=== PATIENT | female | born 1950 | race Caucasian/White ===

== ENCOUNTER 2018-10-10 01:36 | Inpatient (IN) | payer MEDICARE, OTHER ==
[2018-10-10 04:29] LABS: ABNORMAL IP MESSAGE 1; HEMATOCRIT 35.8 % (37.0-47.0); HEMOGLOBIN 10.4 g/dl (12.0-16.0); MEAN CORPUSCULAR HEMOGLOBIN 26.9 pg (29.0-33.0); MEAN CORPUSCULAR HGB CONC 29.1 g/dl (32.0-37.0); MEAN CORPUSCULAR VOLUME 92.5 fl (82.0-101.0); MEAN PLATELET VOLUME 9.7 fl (7.4-10.4); PLATELET COUNT 262 10^3/UL (140-415); RED BLOOD COUNT 3.87 10^6/ul (4.20-5.40); RED CELL DISTRIBUTION WIDTH 16.5 % (11.5-14.5)
[2018-10-10 04:29] LABS: WHITE BLOOD COUNT 6.8 10^3/ul (4.8-10.8)
[2018-10-10 04:32] LABS: ADD MAN DIFF? YES; POSITIVE DIFF @See below
[2018-10-10 04:49] LABS: INR 0.96; PROTIME 12.9 Sec (11.9-14.9)
[2018-10-10 04:51] LABS: ANION GAP 8 (5-13); BLOOD UREA NITROGEN 42 mg/dl (7-20); CARBON DIOXIDE 30 mmol/L (21-31); CHLORIDE 100 mmol/L (97-110); CREATININE 1.33 mg/dl (0.44-1.00); Estimated GFR 40 mL/min (>60); GLUCOSE 88 mg/dl (70-220); SODIUM 138 mmol/L (135-144)
[2018-10-10 05:01] LABS: B-TYPE NATRIURETIC PEPTIDE 3840 PG/ML (0-125); TROPONIN-I 0.053 ng/ml (0.000-0.120)
[2018-10-10 05:17] LABS: ANISOCYTOSIS 1+ (0-0); BAND NEUTROPHILS #M 3.3 10^3/ul (0.0-0.6); BAND NEUTROPHILS % (M) 49 % (0-4); BASOPHILS % (M) 1 % (0-2); GIANT THROMBO% (M) 11 % (0-0); LYMPHOCYTES #M 0.3 10^3/ul (0.8-2.9); LYMPHOCYTES % (M) 5 % (15-51); METAMYELOCYTES %M 15 % (0-0); MYELOCYTES #M 0.2 10^3/ul (0.0-0.0); MYELOCYTES % (M) 4 % (0-0); PLATELET ESTIMATE NORMAL; PLATELET MORPHOLOGY COMMENT @See below; POIKILOCYTOSIS 1+ (0-0); POLYCHROMASIA 1+ (0-0); SEGMENTED NEUTROPHILS (M) % 26 % (39-77); SMUDGE%M 12 % (0-0)
[2018-10-10] MEDS ORDERED: ONDANSETRON 4 MG INJ IV ×2 (06:30→14:00)
[2018-10-10] MEDS ORDERED: ACETAMINOPHEN 325 MG TAB PO ×2 (06:30→14:00)
[2018-10-10] MEDS: LEVOFLOXACIN 750MG/D5W (PMX) 150 ML IVPB (07:03)
[2018-10-10 09:01] LABS: LACTIC ACID 1.5 mmol/L (0.5-2.0)
[2018-10-10] MEDS: NA POLYST SULFON 15 GM/60 ML BTL PO ×2 (09:41→10:12)
[2018-10-10 11:02] LABS: LACTIC ACID 1.5 mmol/L (0.5-2.0)
[2018-10-10] MEDS ORDERED: morphine 2 MG INJ IV (14:00)
[2018-10-10] MEDS ORDERED: HYDROCODONE/APAP (5/325) TAB PO (14:00)
[2018-10-10] MEDS ORDERED: NACL 0.9% 3 ML SYG IV (14:00)
[2018-10-10] MEDS: CEFTRIAXONE 1 GM/50 ML (PMX) 50 ML IVPB (16:21)
[2018-10-10] MEDS: SOD CHLORIDE 0.9% 1,000 ML IV (16:22)
[2018-10-10 21:17] LABS: ADD UMIC YES; UR AMORPHOUS CRYSTAL MANY /HPF (NONE SEEN); UR ASCORBIC ACID NEGATIVE (NEGATIVE); UR BACTERIA FEW /HPF (NONE SEEN); UR BILIRUBIN (Dip) NEGATIVE (NEGATIVE); UR BLOOD (Dip) NEGATIVE (NEGATIVE); UR CLARITY CLOUDY (CLEAR); UR COLOR AMBER (YELLOW); UR GLUCOSE (Dip) NEGATIVE (NEGATIVE); UR KETONES (Dip) NEGATIVE (NEGATIVE); UR LEUKOCYTE ESTERASE (Dip) NEGATIVE Leu/ul (NEGATIVE); UR NITRITE (Dip) NEGATIVE (NEGATIVE); UR RBC 1 /HPF (0-5); UR SPECIFIC GRAVITY (Dip) 1.016 (1.003-1.030); UR TOTAL PROTEIN (Dip) 2+ mg/dl (NEGATIVE); UR UROBILINOGEN (Dip) 1+ mg/dL (NEGATIVE); UR WBC 1 /HPF (0-5)
[2018-10-10 21:23] LABS: SODIUM,URINE RANDOM < 13 mmol/L (30-90)
[2018-10-12 15:19] LABS: CREATININE, RANDOM URINE 113 mg/dL (20-275); MICROALBUMIN 30.2 mg/dL; MICROALBUMIN/CREATININE RATIO 267 (<30)
== END 2018-10-10 22:20 | disposition expired | DRG 682 ==
LOC: E/R 01:36 → 2NE 06:23
DX: N17.9 Acute kidney failure, unspecified (principal); J18.9 Pneumonia, unspecified organism; G92 Toxic encephalopathy; N39.0 Urinary tract infection, site not specified; C79.51 Secondary malignant neoplasm of bone; J91.0 Malignant pleural effusion; M25.561 Pain in right knee; Z91.81 History of falling; R60.1 Generalized edema; I50.9 Heart failure, unspecified; E87.5 Hyperkalemia; E86.0 Dehydration; D64.9 Anemia, unspecified; C50.919 Malignant neoplasm of unspecified site of unspecified female breast; I10 Essential (primary) hypertension; Z66 Do not resuscitate
CPT/HCPCS: 36415; 71045; 73562; 80048; 81001; 81003; 82043; 83605; 83880; 84155; 84300; 84484; 85025; 85610; 87040-91; 87086; 93005; 99285-25